=== PATIENT | male | born 1985 | race Caucasian/White ===

== ENCOUNTER 2016-10-03 12:43 | Emergency (ER) | payer SELFPAY ==
[2016-10-03 12:56] VITALS: BP 135/94
--- NOTE | 2016-10-03 13:15 | EDM.PDOC ---
ED HPI GENERAL MEDICAL PROBLEM - General Chief Complaint: Lower Extremity Injury/Pain Stated Complaint: Rt knee pain Time Seen by Provider: 10/03/16 13:03 Source of Information: Reports: Patient History Limitations: Reports: No Limitations - History of Present Illness INITIAL COMMENTS - FREE TEXT/NARRATIVE: Oj is a 31 yo male who presents to the ER with complaints of right knee pain. States he was seen on Saturday in the clinic after twisting or hyper- extending his knee on Saturday. States he had x-rays done and was told it was normal. States he was given [place] in the clinic and it was better with the medication. He ran out of the medication and is worse today. States it hurts upon ambulation. States it feels like growing pains. Knee Pain Score (Numeric/FACES): 8 - Related Data Allergies Allergy/AdvReac Type Severity Reaction Status Date / Time sertraline [From Zoloft] Allergy Bradycardia Verified 10/03/16 12:56 Home Meds: Home Meds Acetaminophen/HYDROcodone [[place] 325-5 MG] 1 tab PO Q4H PRN 10/03/16 [History] Past Medical History - Past Health History Medical/Surgical History: Denies Medical/Surgical History Psychiatric History: Reports: Addiction, Depression, Suicide Attempt, Suicidal Ideation - History Comment History Comment: History of chronic substance abuse primarily methamphetamines but heroin also over the last 8-9 months. Social & Family History - Family History Family Medical History: Noncontributory - Tobacco Use Smoking Status *Q: Current Every Day Smoker Years of Tobacco use: 5 Packs/Tins Daily: 0.5 - Caffeine Use Caffeine Use: Reports: Energy Drinks, Soda - Alcohol Use Days Per Week of Alcohol Use: 2 Number of Drinks Per Day: 3 Total Drinks Per Week: 6 - Recreational Drug Use Recreational Drug Use: No Drug Use in Last 12 Months: Yes Recreational Drug Type: Reports: Methamphetamine Recreational Drug Use Frequency: Not Used In Over 1 Month Recreational Drug Last Use: Yesterday - Living Situation & Occupation Living situation: Reports: Single, Alone Occupation: Unemployed Review of Systems - Review of Systems Review Of Systems: ROS reveals no pertinent complaints other than HPI. Trauma Exam - Physical Exam Exam: See Below Exam Limited By: No Limitations General Appearance: Reports: Alert, No Apparent Distress Extremities: No Evidence of Injury, Normal Range of Motion, Pain with Movement, Tenderness (with palpation generalized around knee, worse anterior. ), Other ( No joint effusion. No crepitus. Negative anterior and posterior drawer. Negative Desean's. negative Mihaela's. Negative Valgus and Varus stretch. ) Neurologic: Reports: No Motor/Sensory Deficits Course - Vital Signs Last Recorded V/S: Last Vital Signs Temp 98.0 F 10/03/16 12:53 Pulse 95 10/03/16 12:53 Resp 20 10/03/16 12:53 BP 135/94 H 10/03/16 12:53 Pulse Ox 99 10/03/16 12:53 Departure - Departure Time of Disposition: 13:15 Disposition: Home, Self-Care 01 Condition: good Clinical Impression: Right knee pain Qualifiers: Chronicity: acute Qualified Code(s): M25.561 - Pain in right knee - Discharge Information Forms: ED Department Discharge Additional Instructions: 1) See physical therapy, order filled out. 2) May use RICE therapy; rest, ice, compression and elevation. If going to ice 20 minutes at a time, 5 times a day. 3) Recommend taking 500mg of Tylenol with 800mg of ibuprofen every 6-8 hours as needed for pain. Encourage taking with food. 4) If still symptomatic after physical therapy treatment, recommend returning for MRI. - Problem List & Annotations (1) Right knee pain SNOMED Code(s): 08782383 Code(s): M25.561 - PAIN IN RIGHT KNEE Status: Acute Qualifiers: Chronicity: acute Qualified Code(s): M25.561 - Pain in right knee - Problem List Review Problem List Initiated/Reviewed/Updated: Yes - Assessment/Plan Plan: See additional instructions.
== END 2016-10-03 13:25 | disposition home or self-care (01) ==
LOC: CC.ED 12:43
DX: M25.561 Pain in right knee (principal); F32.9 Major depressive disorder, single episode, unspecified; F17.210 Nicotine dependence, cigarettes, uncomplicated; Z88.8 Allergy status to other drugs, medicaments and biological substances
CPT/HCPCS: 99282

== ENCOUNTER 2016-10-07 17:57 | Emergency (ER) | payer MEDICAID ==
[~2016-10-07 17:57] MED LIST: Ketorolac 10 MG Tab PO ONE
[2016-10-07] MEDS ORDERED: Ketorolac 30 MG/ML SDV IVPUSH ONE (18:00)
[2016-10-07] MEDS ORDERED: Sodium Chloride 0.9% 1,000 ML IV ONE ×2 (18:09→19:21)
[2016-10-07] MEDS ORDERED: Take Home: Ketorolac 10 MG Tab, 4 Tab Pack PO ONE (18:29)
[2016-10-07] MEDS ORDERED: Tamsulosin 0.4 MG Cap.ER PO ONE (18:30)
[2016-10-07] MEDS ORDERED: Morphine 4 MG/ML Syringe IVPUSH ONE ×2 (18:36→19:22)
--- NOTE | 2016-10-07 19:29 | EDM.PDOC ---
ED HPI GENERAL MEDICAL PROBLEM - General Chief Complaint: Flank Pain Stated Complaint: kidney stone pain Time Seen by Provider: 10/07/16 18:50 Source of Information: Reports: Patient History Limitations: Reports: No Limitations - History of Present Illness INITIAL COMMENTS - FREE TEXT/NARRATIVE: patient was seen in [place] yesterday and diagnosed with kidney stones, and the pain has become unbearable at this point. Onset: Gradual Duration: Day(s): Quality: Reports: Sharp, Stabbing Severity: Severe Improves with: Reports: Medication - Related Data Allergies Allergy/AdvReac Type Severity Reaction Status Date / Time sertraline [From Zoloft] Allergy Bradycardia Verified 10/07/16 17:59 Home Meds: Home Meds Acetaminophen/HYDROcodone [[place] 325-5 MG] 1 tab PO Q4H PRN 10/03/16 [History] Past Medical History - Past Health History Medical/Surgical History: Denies Medical/Surgical History Psychiatric History: Reports: Addiction, Depression, Suicide Attempt, Suicidal Ideation - History Comment History Comment: History of chronic substance abuse primarily methamphetamines but heroin also over the last 8-9 months. Social & Family History - Family History Family Medical History: Noncontributory - Tobacco Use Smoking Status *Q: Current Every Day Smoker Years of Tobacco use: 5 Packs/Tins Daily: 0.5 - Caffeine Use Caffeine Use: Reports: Energy Drinks, Soda - Alcohol Use Days Per Week of Alcohol Use: 2 Number of Drinks Per Day: 3 Total Drinks Per Week: 6 - Recreational Drug Use Recreational Drug Use: No Drug Use in Last 12 Months: Yes Recreational Drug Type: Reports: Methamphetamine Recreational Drug Use Frequency: Not Used In Over 1 Month Recreational Drug Last Use: Yesterday - Living Situation & Occupation Living situation: Reports: Single, Alone Occupation: Unemployed ED ROS GENERAL - Review of Systems Review Of Systems: See Below Constitutional: Reports: No Symptoms HEENT: Reports: No Symptoms Respiratory: Reports: No Symptoms Cardiovascular: Reports: No Symptoms Endocrine: Reports: No Symptoms GI/Abdominal: Reports: No Symptoms Musculoskeletal: Reports: Back Pain Skin: Reports: No Symptoms Neurological: Reports: No Symptoms Psychiatric: Reports: No Symptoms Hematologic/Lymphatic: Reports: No Symptoms Immunologic: Reports: No Symptoms ED EXAM,LOWER BACK PAIN/INJURY - Physical Exam Exam: See Below Exam Limited By: No Limitations General Appearance: Alert, WD/WN Ears: Normal External Exam Nose: Normal Inspection Throat/Mouth: Normal Inspection Neck: Normal Inspection Respiratory/Chest: No Respiratory Distress, Lungs Clear Cardiovascular: Normal Peripheral Pulses GI/Abdominal: Normal Bowel Sounds Back Exam: Normal Inspection, Full Range of Motion Extremities: Normal Inspection Neurological: Alert, Normal Mood/Affect Course - Orders/Labs/Meds Labs: Laboratory Tests 10/07/16 Range/Units 18:35 Urine Color Yellow (YELLOW) Urine Appearance Clear (CLEAR) Urine pH 5.5 (4.5-8.0) Ur Specific [place] 1.031 H (1.003-1.020) Urine Protein Trace H (NEGATIVE) mg/dL Urine Glucose (UA) Negative (NEGATIVE) mg/dL Urine Ketones Trace H (NEGATIVE) mg/dL Urine Occult Blood Moderate H (NEGATIVE) Urine Nitrite Negative (NEGATIVE) Urine Bilirubin Negative (NEGATIVE) Urine Urobilinogen 1.0 (0.2-1.0) EU/dL Ur Leukocyte Esterase Negative (NEGATIVE) Urine RBC 5-10 H (0-5) /HPF Urine WBC Not seen (0-5) /HPF Ur Squamous Epith Cells Occasional H (NOT SEEN) /HPF Urine Bacteria Occasional H (NOT SEEN) /HPF Urine Mucus Many H (NOT SEEN) /HPF Meds: Medications Discontinued Medications Generic Name Dose Route Start Last Admin Trade Name Freq PRN Reason Stop Dose Admin Sodium Chloride 1,000 mls @ 999 mls/hr 10/07/16 18:09 10/07/16 18:16 Normal Saline IV 10/07/16 19:09 999 mls/hr ONETIME ONE Administration Ketorolac Tromethamine 30 mg 10/07/16 18:00 10/07/16 18:06 Toradol IVPUSH 10/07/16 18:01 30 mg ONETIME ONE Administration Ketorolac Tromethamine 2 packet 10/07/16 18:29 10/07/16 18:48 Take Home: Ketorolac 10 Mg, 4 Tab Pack PO 10/07/16 18:30 2 packet ONETIME ONE Administration Morphine Sulfate 4 mg 10/07/16 18:36 10/07/16 18:45 Morphine IVPUSH 10/07/16 18:37 4 mg ONETIME ONE Administration Tamsulosin HCl 0.8 mg 10/07/16 18:30 10/07/16 18:45 Flomax PO 10/07/16 18:31 0.8 mg ONETIME ONE Administration Departure - Departure Time of Disposition: 19:24 Disposition: Home, Self-Care 01 Clinical Impression: Renal calculi - Discharge Information Instructions: Flank Pain, [id number], Kidney Stones, [id number] Forms: ED Department Discharge Additional Instructions: Drink plenty of fluids, take pain medications as prescribed. this stone is small enough that it should pass on its own.
[2016-10-07] MEDS ORDERED: oxyCODONE 5 MG Tab PO PRN (19:31)
[2016-10-07 20:06] VITALS: BP 128/85
[2016-10-07] MEDS ORDERED: oxyCODONE 5 MG Tab PO ONE (20:36)
== END 2016-10-07 20:15 | disposition home or self-care (01) ==
LOC: CC.ED 17:57
DX: N20.0 Calculus of kidney (principal); F32.9 Major depressive disorder, single episode, unspecified; F17.210 Nicotine dependence, cigarettes, uncomplicated; Z88.8 Allergy status to other drugs, medicaments and biological substances
CPT/HCPCS: 81001; 96365; 96366; 96375; 96376; 99283; A9270; J1885; J2270; J7030; 96361; 96374

== ENCOUNTER 2016-10-20 17:36 | Emergency (ER) | payer MEDICAID ==
[2016-10-20 17:44] VITALS: BP 146/92
[2016-10-20] MEDS ORDERED: Ketorolac 30 MG/ML SDV IVPUSH PRN (17:45)
[2016-10-20] MEDS ORDERED: Sodium Chloride 0.9% 1,000 ML IV SCH (17:45)
[2016-10-20] MEDS ORDERED: Morphine 4 MG/ML Syringe IVPUSH PRN (17:46)
[2016-10-20] MEDS ORDERED: Ondansetron 4 MG/2 ML SDV IVPUSH PRN (17:46)
[2016-10-20] MEDS ORDERED: Tamsulosin 0.4 MG Cap.ER PO ONE (18:01)
--- NOTE | 2016-10-20 18:21 | EDM.PDOC ---
ED HPI GENERAL MEDICAL PROBLEM - General Chief Complaint: Genitourinary Problem Stated Complaint: ?kidney stone Time Seen by Provider: 10/20/16 18:00 Source of Information: Reports: Patient History Limitations: Reports: No Limitations - History of Present Illness INITIAL COMMENTS - FREE TEXT/NARRATIVE: This patient presents to the ER with right flank pain. Patient reports it has been ongoing for 3 weeks. He reports he was told he had a 3mm kidney stone. Patient reports some nausea. Patient denies cam, dizziness, v, d, f, abd pain, bowel changes, urinary changes. Patient sitting in chair in ER. Duration: Week(s): (3) Location: Reports: Other (right flank) Quality: Reports: Sharp, Stabbing Severity: Severe Improves with: Reports: None Worsens with: Reports: None Associated Symptoms: Reports: Nausea/Vomiting (nausea). Denies: Confusion, Chest Pain, Cough, cough w sputum, Diaphoresis, Fever/Chills, Headaches, Loss of Appetite, Malaise, Seizure, Shortness of Breath, Syncope Flank Pain Score (Numeric/FACES): 9 - Related Data Allergies Allergy/AdvReac Type Severity Reaction Status Date / Time sertraline [From Zoloft] Allergy Bradycardia Verified 10/20/16 17:45 Home Meds: Home Meds . [No Known Home Meds] 10/20/16 [History] Past Medical History - Past Health History Medical/Surgical History: Denies Medical/Surgical History Psychiatric History: Reports: Addiction, Depression, Suicide Attempt, Suicidal Ideation - Past Surgical History Musculoskeletal Surgical History: Reports: Knee Replacement - History Comment History Comment: History of chronic substance abuse primarily methamphetamines but heroin also over the last 8-9 months. Social & Family History - Family History Family Medical History: Noncontributory - Tobacco Use Smoking Status *Q: Current Every Day Smoker Years of Tobacco use: 10 Packs/Tins Daily: 0.5 - Caffeine Use Caffeine Use: Reports: Coffee, Soda - Alcohol Use Days Per Week of Alcohol Use: 2 Number of Drinks Per Day: 3 Total Drinks Per Week: 6 - Recreational Drug Use Recreational Drug Use: No Drug Use in Last 12 Months: Yes Recreational Drug Type: Reports: Methamphetamine Recreational Drug Use Frequency: Not Used In Over 1 Month Recreational Drug Last Use: Yesterday - Living Situation & Occupation Living situation: Reports: Single, Alone Occupation: Unemployed ED ROS GENERAL - Review of Systems Review Of Systems: See Below Constitutional: Reports: No Symptoms HEENT: Reports: No Symptoms Respiratory: Reports: No Symptoms Cardiovascular: Reports: No Symptoms Endocrine: Reports: No Symptoms GI/Abdominal: Reports: Nausea. Denies: Abdominal Pain, Vomiting : Reports: Flank Pain (Right) Musculoskeletal: Reports: No Symptoms Skin: Reports: No Symptoms Neurological: Reports: No Symptoms Psychiatric: Reports: No Symptoms Hematologic/Lymphatic: Reports: No Symptoms Immunologic: Reports: No Symptoms ED EXAM, GI/ABD - Physical Exam Exam: See Below Exam Limited By: No Limitations General Appearance: Alert, WD/WN, No Apparent Distress Eyes: Bilateral: Normal Appearance Ears: Normal External Exam, Normal Canal, Hearing Grossly Normal, Normal TMs Nose: Normal Inspection, Normal Mucosa, No Blood Throat/Mouth: Normal Inspection, Normal Lips, Normal Teeth, Normal Gums, Normal Oropharynx, Normal Voice, No Airway Compromise Head: Atraumatic, Normocephalic Neck: Normal Inspection, Supple, Non-Tender, Full Range of Motion Respiratory/Chest: No Respiratory Distress, Lungs Clear, Normal Breath Sounds, No Accessory Muscle Use Cardiovascular: Normal Peripheral Pulses, No Edema, No Gallop, No JVD, No Murmur , No Rub, Tachycardia (108 on exam.) GI/Abdominal: Soft, Non-Tender, No Organomegaly, No Distention, No Abnormal Bruit, No Mass Back Exam: Normal Inspection, Full Range of Motion, CVA Tenderness (R). No: CVA Tenderness (L) Extremities: Normal Inspection, Normal Range of Motion, Non-Tender, No Pedal Edema, Normal Capillary Refill Neurological: Alert, Oriented Psychiatric: Normal Mood, Anxious Skin Exam: Warm, Dry, Intact, Normal Color, No Rash Lymphatic: No Adenopathy Course - Vital Signs Last Recorded V/S: Last Vital Signs Temp 98.3 F 10/20/16 17:37 Pulse 118 H 10/20/16 17:37 Resp 20 10/20/16 17:37 BP 146/92 H 10/20/16 17:37 Pulse Ox 98 10/20/16 17:37 - Orders/Labs/Meds Orders: Active Orders 24 hr Category Date Time Status Ketorolac [Toradol] Med 10/20/16 17:45 Active 30 mg IVPUSH Q6H PRN Ondansetron [Zofran] Med 10/20/16 17:46 Active 4 mg IVPUSH Q6H PRN Sodium Chloride 0.9% [Normal Saline] 1,000 ml Med 10/20/16 17:45 Active IV ASDIRECTED Medication Orders Sodium Chloride (Normal Saline) 1,000 mls @ 999 mls/hr IV ASDIRECTED JAMISON Last Admin: 10/20/16 17:54 Dose: 999 mls/hr Ketorolac Tromethamine (Toradol) 30 mg IVPUSH Q6H PRN PRN Reason: Pain Stop: 10/25/16 17:46 Last Admin: 10/20/16 17:56 Dose: 30 mg Ondansetron HCl (Zofran) 4 mg IVPUSH Q6H PRN PRN Reason: Nausea Last Admin: 10/20/16 17:55 Dose: 4 mg Labs: Laboratory Tests 10/20/16 10/20/16 10/20/16 Range/Units 17:45 18:02 18:11 Sodium 143 (136-145) mEq/L Potassium 4.0 (3.5-5.0) mEq/L Chloride 106 (98-106) mEq/L Carbon Dioxide 28 (21-32) mmol/L BUN 10 (7-18) mg/dL Creatinine 0.7 (0.7-1.3) mg/dL Est Cr Clr Drug Dosing 140.33 mL/min Estimated GFR (MDRD) > 60 (>=60) mL/min Glucose 124 H (75-99) mg/dL Calcium 8.5 (8.4-10.1) mg/dL Urine Color Yellow (YELLOW) Urine Appearance Clear (CLEAR) Urine pH 7.5 (4.5-8.0) Ur Specific [place] 1.015 (1.003-1.020) Urine Protein 30 H (NEGATIVE) mg/dL Urine Glucose (UA) Negative (NEGATIVE) mg/dL Urine Ketones Negative (NEGATIVE) mg/dL Urine Occult Blood Moderate H (NEGATIVE) Urine Nitrite Negative (NEGATIVE) Urine Bilirubin Negative (NEGATIVE) Urine Urobilinogen 1.0 (0.2-1.0) EU/dL Ur Leukocyte Esterase Negative (NEGATIVE) Urine RBC 5-10 H (0-5) /HPF Urine WBC Not seen (0-5) /HPF Ur Squamous Epith Cells Occasional H (NOT SEEN) /HPF Urine Mucus Occasional H (NOT SEEN) /HPF Urine Opiates Screen Negative (NEGATIVE) Ur Oxycodone Screen Negative (NEGATIVE) Urine Methadone Screen Negative (NEGATIVE) Ur Barbiturates Screen Negative (NEGATIVE) U Tricyclic Antidepress Negative (NEGATIVE) Ur Phencyclidine Scrn Negative (NEGATIVE) Ur Amphetamine Screen Negative (NEGATIVE) U Methamphetamines Scrn Negative (NEGATIVE) Urine MDMA Screen Negative (NEGATIVE) U Benzodiazepines Scrn Negative (NEGATIVE) Urine Cocaine Screen Negative (NEGATIVE) U Marijuana (THC) Screen Negative (NEGATIVE) Meds: Medications Generic Name Dose Route Start Last Admin Trade Name Freq PRN Reason Stop Dose Admin Sodium Chloride 1,000 mls @ 999 mls/hr 10/20/16 17:45 10/20/16 17:54 Normal Saline IV 999 mls/hr ASDIRECTED JAMISON Administration Ketorolac Tromethamine 30 mg 10/20/16 17:45 10/20/16 17:56 Toradol IVPUSH 10/25/16 17:46 30 mg Q6H PRN Administration Pain Ondansetron HCl 4 mg 10/20/16 17:46 10/20/16 17:55 Zofran IVPUSH 4 mg Q6H PRN Administration Nausea Discontinued Medications Generic Name Dose Route Start Last Admin Trade Name Freq PRN Reason Stop Dose Admin Morphine Sulfate 4 mg 10/20/16 17:46 Morphine IVPUSH Q4H PRN Pain Tamsulosin HCl 0.4 mg 10/20/16 18:01 Flomax PO 10/20/16 18:02 ONETIME ONE - Re-Assessments/Exams Free Text/Narrative Re-Assessment/Exam: 10/20/16 9705 Patient reports the Toradol did not help his pain. He reports that he wants a different pain medication for pain. He reports his nausea has resolved. I have reviewed patient records; see visits for pain related complaints to [facility] where he signed out YAKOV, Abhishek, and here. CT at [facility] also did not show a kidney stone on repeat scan on the 10 of October: [facility]: September 29, , , October 13. [facility]: October 11 Marija: Scheduled for appointment October 17, no show [facility]: October 06, , . 10/20/16 18:23 I spoke to the patient about his multiple visits to several different clinics, ERs for pain related complaints. I instructed him about his previous CT result, and no kidney stone on previous. I educated the patient that I would not be treating his pain with narcotic medication. He reports he can just go home and be in pain. Patient requests to be discharged now. I have discharged the patient. Departure - Departure Time of Disposition: 18:22 Disposition: Home, Self-Care 01 Condition: good Clinical Impression: Drug-seeking behavior, Right flank pain - Discharge Information Instructions: Flank Pain Forms: ED Department Discharge Additional Instructions: Followup with a primary care provider Return to the ER for fever or other emergencies Increase fluids - My Orders Last 24 Hours: My Active Orders 10/20/16 17:45 Ketorolac [Toradol] 30 mg IVPUSH Q6H PRN Sodium Chloride 0.9% [Normal Saline] 1,000 ml IV ASDIRECTED 10/20/16 17:46 Ondansetron [Zofran] 4 mg IVPUSH Q6H PRN - Assessment/Plan Last 24 Hours: My Active Orders 10/20/16 17:45 Ketorolac [Toradol] 30 mg IVPUSH Q6H PRN Sodium Chloride 0.9% [Normal Saline] 1,000 ml IV ASDIRECTED 10/20/16 17:46 Ondansetron [Zofran] 4 mg IVPUSH Q6H PRN Plan: PLEASE SEE RN NOTE FOR PFSH.
[2016-10-20 18:24] LABS: CHLORIDE,CL 106 mEq/L (98-106); SODIUM,NA 143 mEq/L (136-145)
== END 2016-10-20 18:30 | disposition home or self-care (01) ==
LOC: CC.ED 17:36
DX: R10.9 Unspecified abdominal pain (principal); Z76.5 Malingerer [conscious simulation]; Z88.8 Allergy status to other drugs, medicaments and biological substances; F17.210 Nicotine dependence, cigarettes, uncomplicated; Z96.659 Presence of unspecified artificial knee joint
CPT/HCPCS: 36415; 80048; 80305; 81001; 96374; 96375; 99283; J1885; J2405; J7030